=== PATIENT | female | born 1955 | race Hispanic/Latino ===

== ENCOUNTER 2019-03-23 21:21 | Observation (INO) | payer OTHER ==
[~2019-03-23] VITALS: Ht 149.9 cm; Wt 79.1 kg
[2019-03-23] MEDS ORDERED: IPRATROPIUM/ALBUTEROL SULFATE 3 ML SOLUTION IH ONE (21:46)
[2019-03-23 21:52] LABS: BASOPHILS % (AUTO) 1.3 % (0.0-5.0); EOSINOPHILS % (AUTO) 4.3 % (0.0-8.0); HEMATOCRIT 38.6 % (36-48); MEAN CORPUSCULAR HEMOGLOBIN 30.1 pg (27.0-33.0); MEAN CORPUSCULAR HGB CONC 34.7 g/dL (32.0-36.0); MEAN CORPUSCULAR VOLUME 86.7 fL (79-99); MONOCYTES % (AUTO) 8.3 % (3.0-13.0); NEUTROPHILS % (AUTO) 51.1 % (40.0-77.0); NUCLEATED RED BLOOD CELLS 0.1 % (0.0-0.19); PLATELET COUNT (AUTO) 227 K/uL (130-400); RED BLOOD CELL COUNT(AUTO) 4.45 MIL/uL (4.00-5.50); RED CELL DISTRIBUTION WIDTH 13.3 % (11.0-15.5)
[2019-03-23] MEDS ORDERED: ALBUTEROL SULFATE 0.083% 2.5 MG/3 ML INH IH ONE ×2 (21:59→22:51)
[2019-03-23 22:06] LABS: CREATININE 0.8 mg/dL (0.5-1.5)
[2019-03-23 22:11] LABS: ALBUMIN 3.6 g/dL (3.5-5.0); BILIRUBIN,TOTAL 0.4 mg/dL (0.2-1.0); TOTAL PROTEIN, SERUM 7.3 g/dL (6.0-8.3)
[2019-03-23] MEDS ORDERED: METHYLPREDNISOLONE SOD SUCC 125MG/2ML VIAL ONE (22:19)
[2019-03-23] MEDS ORDERED: DOXYCYCLINE HYCLATE 100 MG TABLET PO ONE (22:19)
[2019-03-23] MEDS ORDERED: SODIUM CHLORIDE 0.9% 100 ML IV ONE (22:38)
[2019-03-23] MEDS ORDERED: CEFTRIAXONE SODIUM 1 GM ONE (22:38)
[2019-03-23 22:48] LABS: INR 0.92 (0.85-1.15); PARTIAL THROMBOPLASTIN TIME 24.3 SEC (26.3-35.5); PROTHROMBIN TIME 9.7 SEC (9.6-11.6)
[2019-03-24 00:15] VITALS: BP 166/89
[2019-03-24] MEDS ORDERED: ADV250 IH (00:53)
[2019-03-24] MEDS ORDERED: ALBU8.5H8 IH (00:53)
--- NOTE | 2019-03-24 01:07 | NUR ---
ER Admitted from ER,aao x 3.No Cpoe orders yet,paged Fatoumata BAUTISTA.
[2019-03-24] MEDS ORDERED: SODIUM CHLORIDE 0.9% 1000ML 1,000 ML IV SCH (01:18)
[2019-03-24 01:27] LABS: APPEARANCE,URINE Clear (CLEAR); BILIRUBIN,URINE Negative (NEGATIVE); COLOR,URINE Yellow (YELLOW); GLUCOSE, URINE (UA) >=1000 mg/dL (NEGATIVE); KETONES,URINE 15 mg/dL (NEGATIVE); LEUKOCYTE ESTERASE ,URINE Trace (NEGATIVE); NITRATE,URINE Negative (NEGATIVE); OCCULT BLOOD,URINE Trace (NEGATIVE); PROTEIN,URINE Negative (NEGATIVE)
[2019-03-24] MEDS ORDERED: ZOLPIDEM TARTRATE 5 MG TAB PO PRN (01:30)
[2019-03-24] MEDS ORDERED: DOCUSATE SODIUM 100 MG CAP PO ONE (01:30)
[2019-03-24] MEDS ORDERED: ACETAMINOPHEN 325 MG TAB PO PRN ×2 (01:30)
[2019-03-24 01:33] LABS: BACTERIA,URINE Few /HPF (None Seen); RBC,URINE 0-1 /HPF (0-1); SQUAMOUS EPITHELIAL CELL,UR Few /HPF (0-2)
[2019-03-24] MEDS: LEVOFLOXACIN 500 MG/D5W 100 ML 100 ML IV SCH (01:57)
[2019-03-24] MEDS ORDERED: GUAIFENESIN-CODEINE 5 ML SYRUP ONE (03:59)
[2019-03-24 04:02] VITALS: BP 140/75
[2019-03-24 05:11] LABS: BASOPHILS % (AUTO) 0.3 % (0.0-5.0); EOSINOPHILS % (AUTO) 0.1 % (0.0-8.0); HEMATOCRIT 38.2 % (36-48); LYMPHOCYTES % (AUTO) 7.1 % (21.0-51.0); MEAN CORPUSCULAR HGB CONC 34.4 g/dL (32.0-36.0); MEAN CORPUSCULAR VOLUME 87.2 fL (79-99); MONOCYTES % (AUTO) 1.1 % (3.0-13.0); NEUTROPHILS % (AUTO) 91.4 % (40.0-77.0); PLATELET COUNT (AUTO) 201 K/uL (130-400); RED BLOOD CELL COUNT(AUTO) 4.38 MIL/uL (4.00-5.50); RED CELL DISTRIBUTION WIDTH 13.6 % (11.0-15.5); WHITE BLOOD COUNT (AUTO) 6.6 K/uL (4.8-10.8)
[2019-03-24 05:23] LABS: ALBUMIN 3.5 g/dL (3.5-5.0); BILIRUBIN,TOTAL 0.4 mg/dL (0.2-1.0); CREATININE 0.9 mg/dL (0.5-1.5); POTASSIUM 3.7 mmol/L (3.5-5.1); TOTAL PROTEIN, SERUM 7.6 g/dL (6.0-8.3)
[2019-03-24] MEDS ORDERED: GUAIFENESIN-CODEINE 5 ML SYRUP PO PRN (05:45)
[2019-03-24] MEDS: INSULIN HUMULIN R 100 UNIT/ML 3ML SQ SCH ×4 (06:10→23:44)
[2019-03-24] MEDS ORDERED: BUDESONIDE 0.5 MG/2 ML INH IH ONE (06:34)
[2019-03-24] MEDS: IPRATROPIUM/ALBUTEROL SULFATE 3 ML SOLUTION IH SCH ×4 (06:44→23:37)
[2019-03-24] MEDS: BUDESONIDE 0.25 MG/2 ML INH IH SCH ×2 (06:45→18:54)
[2019-03-24 08:25] VITALS: BP 124/71
[2019-03-24] MEDS ORDERED: METHYLPREDNISOLONE SOD SUCC 40MG/ML 1ML IVP SCH (09:00)
[2019-03-24] MEDS: FAMOTIDINE/PF 20 MG/2 ML VIAL IV SCH (09:11)
[2019-03-24] MEDS: CETIRIZINE HCL 5 MG TABLET PO SCH (09:11)
[2019-03-24] MEDS: ENOXAPARIN SODIUM 30 MG/0.3 ML SQ SCH (09:18)
[2019-03-24 10:45] VITALS: BP 139/71
[2019-03-24] MEDS: GUAIFENESIN-CODEINE 5 ML SYRUP PO SCH ×2 (13:34→19:36)
[2019-03-24] MEDS: METHYLPREDNISOLONE SOD SUCC 40MG/ML 1ML IVP SCH ×2 (13:36→22:59)
--- NOTE | 2019-03-24 15:16 | NUR ---
RD NOTIFICATION PRIMARY DIAGNOSIS: ASTHMA EXACERBATION, PNEUMONIA. HX: ASTHMA, DM, HYPERLIPIDEMIA, BRONCHITIS. BMI IS 35.2; CLASSIFIED OBESE. CURRENT DIET: REGULAR. MEDS: PEPCID, LOVENOX, DUONEB, PULMICORT, ZYRTEC, AMBIEN, HUMULIN R, ROBITUSSIN. LABS: BG 278, LACTIC ACID 4.9, PTT 24.3. PT IS DIABETIC. PO INTAKE 100% AND HAS GREAT APPETITE PER PT. PT STATED SHE HAS BEEN EDUCATED IN THE PAST REGARDING DIABETES NUTRITION THERAPY. RD RECOMMENDS D/C REGULAR DIET. CHANGE DIET ORDER TO 60GM CCD. RD WILL CONTINUE TO MONITOR AND FOLLOW UP NEEDED. PLEASE NOTIFY RD IF ANY OTHER NUTRITIONAL CONCERNS ARISE. THANK YOU. Addendum: 03/24/19 at [address] RD Amended: Links added.
[2019-03-24 15:41] VITALS: BP 141/77
[2019-03-24] MEDS ORDERED: MONT10TA24 PO (19:38)
[2019-03-24 20:00] VITALS: BP 121/65
[2019-03-25] VITALS: BP 121/69
[2019-03-25] MEDS: GUAIFENESIN-CODEINE 5 ML SYRUP PO SCH ×2 (00:38→06:30)
[2019-03-25] MEDS: LEVOFLOXACIN 500 MG/D5W 100 ML 100 ML IV SCH (01:43)
[2019-03-25 04:00] VITALS: BP 109/70
[2019-03-25 05:26] LABS: HEMATOCRIT 37.1 % (36-48); MEAN CORPUSCULAR HEMOGLOBIN 29.2 pg (27.0-33.0); MEAN CORPUSCULAR HGB CONC 33.2 g/dL (32.0-36.0); PLATELET COUNT (AUTO) 216 K/uL (130-400); RED BLOOD CELL COUNT(AUTO) 4.21 MIL/uL (4.00-5.50); RED CELL DISTRIBUTION WIDTH 13.7 % (11.0-15.5); WHITE BLOOD COUNT (AUTO) 13.3 K/uL (4.8-10.8)
[2019-03-25 05:35] LABS: CREATININE 0.9 mg/dL (0.5-1.5); POTASSIUM 4.4 mmol/L (3.5-5.1)
[2019-03-25] MEDS: IPRATROPIUM/ALBUTEROL SULFATE 3 ML SOLUTION IH SCH ×2 (06:16→11:11)
[2019-03-25] MEDS: BUDESONIDE 0.25 MG/2 ML INH IH SCH (06:30)
[2019-03-25] MEDS: INSULIN HUMULIN R 100 UNIT/ML 3ML SQ SCH (06:31)
[2019-03-25 08:22] VITALS: BP 138/76
--- NOTE | 2019-03-25 08:55 | NUR ---
INITIAL MET W PT AND SHAN, PT IS ALERT, INDEPENDENT, GOES TO SEE VAHE HIGHTOWER AT [facility], HAS INSURANCE THROUGH A BENEFIT, GET MEDS AT [facility], USES NO DME, HAS A NEBULIZER, FEELS SAFE TO DC TODAY- FEELS MUCH BETTER. Addendum: 03/26/19 at 0900 by DANIEL MOORE RN CM Amended: Links added.
[2019-03-25] MEDS ORDERED: LACTULOSE 20 GM/30 ML UDCUP PO SCH ×2 (09:45→14:00)
[2019-03-25] MEDS ORDERED: LACTULOSE 20 GM/30 ML UDCUP ONE (10:23)
[2019-03-25] MEDS: FAMOTIDINE/PF 20 MG/2 ML VIAL IV SCH (10:36)
[2019-03-25] MEDS: CETIRIZINE HCL 5 MG TABLET PO SCH (10:37)
[2019-03-25] MEDS: METHYLPREDNISOLONE SOD SUCC 40MG/ML 1ML IVP SCH (10:39)
[2019-03-25] MEDS: ENOXAPARIN SODIUM 30 MG/0.3 ML SQ SCH (10:47)
--- NOTE | 2019-03-25 12:45 | NUR ---
DISCHARGE INSTRUCTIONS AND F/U APPOINTMENTS WERE EXPLAINED TO THE PATIENT AND PRESCRIPTION WAS GIVEN TO HER AND SHE VERBALIZED UNDERSTANDING. IV ACCESS WAS REMOVED WITHOUT COMPLICATION AND PRESSURE DRESSING APPLIED ON THE SITE. LEFT THE UNIT IN STABLE CONDITION AMBULATORY, ESCORTED BY [employer].
[2019-03-25] MEDS ORDERED: MONTELUKAST SODIUM 10 MG TAB PO SCH (21:00)
== END 2019-03-25 12:40 | disposition home or self-care (01) ==
LOC: EDH 21:21 → INTOOBSV 21:22 → EDHIP 21:22 → 3BH 03-24 00:15
PROVIDERS: ADMIT Internal Medicine; ATTEND Internal Medicine
DX: J45.901 Unspecified asthma with (acute) exacerbation (principal); J18.9 Pneumonia, unspecified organism; J20.9 Acute bronchitis, unspecified; E11.9 Type 2 diabetes mellitus without complications; E78.5 Hyperlipidemia, unspecified; E66.9 Obesity, unspecified; T38.0X5A Adverse effect of glucocorticoids and synthetic analogues, initial encounter; D72.829 Elevated white blood cell count, unspecified; Z79.4 Long term (current) use of insulin; Z79.52 Long term (current) use of systemic steroids; Z68.35 Body mass index [BMI] 35.0-35.9, adult
CPT/HCPCS: 36415 ×3; 71045; 80048; 80053 ×2; 81001; 82948 ×5; 83605 ×3; 84484; 85025 ×2; 85027; 85610; 85730; 87040 ×2; 87804 ×2; 93005; 94640 ×12; 94664; 94760; 96365; 96366; 96372 ×2; 96375; 96376 ×2; 99284; A4606; G0378 ×23; J0696; J1650 ×2; J1815 ×5; J1956 ×2; J2920 ×4; J2930; J3490 ×2; J7030